=== PATIENT | female | born 1985 | race Caucasian/White ===

== ENCOUNTER 2017-02-23 17:32 | Emergency (ER) | payer MEDICAID ==
[2013-08-20 09:29] VITALS: BMI 29.9
[~2017-02-23 17:32] MED LIST: ANTIVERT25 MG PO; CELEXA20 MG PO; LOPRESSOR25 MG; POLYGESIC 5/5001 CAP PO; PRILOSEC10 MG PO
[2017-02-23 19:05] LABS: APPEARANCE CLEAR (CLEAR); BILIRUBIN NEGATIVE (NEGATIVE); COLOR YELLOW (YELLOW); GLUCOSE NEGATIVE (NEGATIVE); KETONE NEGATIVE (NEGATIVE); LEUKOCYTE ESTERASE 1+ (NEGATIVE); NITRITE NEGATIVE (NEGATIVE); PROTEIN NEGATIVE (NEGATIVE); SPECIFIC GRAVITY 1.015 (1.005-1.020); UROBILINOGEN NORMAL (NORMAL)
[2017-02-23 19:06] LABS: BACTERIA MODERATE /hpf (NONE SEEN); MUCUS <1+ /lpf (NONE SEEN); RED CELLS - URINE 0-5 /hpf (0-5); WHITE CELLS - URINE 0-5 /hpf (0-5)
[2017-02-23 21:02] LABS: HCG SERUM NEGATIVE (NEGATIVE)
== END 2017-02-23 20:55 | disposition home or self-care (01) ==
LOC: D.ER 17:32
PROVIDERS: Emergency Medicine; Physician Assistant
DX: R30.0 Dysuria (principal); R10.9 Unspecified abdominal pain; R11.2 Nausea with vomiting, unspecified; N76.0 Acute vaginitis; B96.89 Other specified bacterial agents as the cause of diseases classified elsewhere; F17.200 Nicotine dependence, unspecified, uncomplicated

== ENCOUNTER 2017-02-27 22:31 | Emergency (ER) | payer MEDICAID ==
[2013-08-20 09:29] VITALS: BMI 29.9
== END 2017-02-28 00:10 | disposition home or self-care (01) ==
LOC: D.ER 22:31
DX: J01.90 Acute sinusitis, unspecified (principal)

== ENCOUNTER 2017-02-28 15:57 | Emergency (ER) | payer MEDICAID ==
[2013-08-20 09:29] VITALS: BMI 29.9
[2017-02-28 20:07] LABS: BASOPHILS 0.1 % (0-2); EOSINOPHILS 0 % (0-7); HEMATOCRIT 37.8 % (36.0-48.0); HEMOGLOBIN 12.6 g/dL (12-16); IMMATURE GRANULOCYTES 0.3 % (0-5); LYMPHOCYTES 15.6 % (15-50); MCH 31.3 pg (26.0-34.0); MCHC 33.3 g/dL (31.0-37.0); MEAN PLATELET VOLUME 10.8 fL (7.4-10.4); MONOCYTES 6.2 % (2-11); NEUTROPHILS 77.8 % (40-80); PLATELET COUNT 244 10x3/uL (130-400); RBC 4.02 10x6/uL (4.00-5.40); RDW 13.9 % (11.5-14.5); WBC 14.1 10x3/uL (4.8-10.8)
[2017-02-28 20:23] LABS: CALC OSMOLALITY 278 mosm/kg (275-300); CALCIUM 8.5 mg/dL (8.5-10.1); CARBON DIOXIDE 22.6 mmol/L (21.0-32.0); CHLORIDE - SERUM 105 mmol/L (98-107); CREATININE - SERUM 0.7 mg/dL (0.6-1.3); GLUCOSE 112 mg/dL (74-106); POTASSIUM - SERUM 3.7 mmol/L (3.5-5.1); SODIUM 140 mmol/L (136-145); UREA NITROGEN 10 mg/dL (7-18); eGFR NON AFRICAN AMERICAN > 90 mL/min (90-120)
[2017-02-28 20:29] LABS: TROPONIN-I < 0.017 ng/mL (0.000-0.060)
== END 2017-02-28 22:00 | disposition home or self-care (01) ==
LOC: D.ER 15:57
PROVIDERS: Physician Assistant Medical
DX: J01.90 Acute sinusitis, unspecified (principal); M79.602 Pain in left arm; F17.200 Nicotine dependence, unspecified, uncomplicated

== ENCOUNTER 2017-03-13 22:24 | Emergency (ER) | payer MEDICAID ==
[2013-08-20 09:29] VITALS: BMI 29.9
== END 2017-03-14 01:00 | disposition home or self-care (01) ==
LOC: D.ER 22:24
DX: L60.0 Ingrowing nail (principal); F17.200 Nicotine dependence, unspecified, uncomplicated

== ENCOUNTER 2017-03-20 15:57 | Emergency (ER) | payer MEDICAID ==
[2013-08-20 09:29] VITALS: BMI 29.9
== END 2017-03-20 21:10 | disposition home or self-care (01) ==
LOC: D.ER 15:57
DX: M79.675 Pain in left toe(s) (principal)

== ENCOUNTER 2017-03-27 14:08 | Emergency (ER) | payer MEDICAID | END 2017-03-27 15:46 | disposition home or self-care (01) | LOC: D.ER 14:08 | DX: K08.89 Other specified disorders of teeth and supporting structures (principal); K05.10 Chronic gingivitis, plaque induced ==

== ENCOUNTER 2017-04-07 21:02 | Emergency (ER) | payer MEDICAID ==
[2013-08-20 09:29] VITALS: BMI 29.9
== END 2017-04-08 00:09 | disposition home or self-care (01) ==
LOC: D.ER 21:02
DX: S93.601A Unspecified sprain of right foot, initial encounter (principal); X58.XXXA Exposure to other specified factors, initial encounter; Y93.89 Activity, other specified; Y92.029 Unspecified place in mobile home as the place of occurrence of the external cause

== ENCOUNTER 2017-04-16 18:32 | Emergency (ER) | payer MEDICAID ==
[2013-08-20 09:29] VITALS: BMI 29.9
== END 2017-04-16 21:00 | disposition home or self-care (01) ==
LOC: D.ER 18:32
DX: M25.572 Pain in left ankle and joints of left foot (principal); M25.571 Pain in right ankle and joints of right foot; F17.200 Nicotine dependence, unspecified, uncomplicated

== ENCOUNTER 2017-04-21 22:38 | Emergency (ER) | payer MEDICAID ==
[2013-08-20 09:29] VITALS: BMI 29.9
== END 2017-04-21 23:20 | disposition home or self-care (01) ==
LOC: D.ER 22:38
DX: M25.571 Pain in right ankle and joints of right foot (principal)

== ENCOUNTER 2017-04-24 17:44 | Emergency (ER) | payer MEDICAID ==
[2013-08-20 09:29] VITALS: BMI 29.9
== END 2017-04-24 19:30 | disposition home or self-care (01) ==
LOC: D.ER 17:44
DX: S93.401A Sprain of unspecified ligament of right ankle, initial encounter (principal); X58.XXXA Exposure to other specified factors, initial encounter; Y93.89 Activity, other specified; Y92.029 Unspecified place in mobile home as the place of occurrence of the external cause

== ENCOUNTER 2017-05-10 18:14 | Emergency (ER) | payer MEDICAID ==
[2013-08-20 09:29] VITALS: BMI 29.9
== END 2017-05-10 19:50 | disposition home or self-care (01) ==
LOC: D.ER 18:14
DX: J20.9 Acute bronchitis, unspecified (principal); J06.9 Acute upper respiratory infection, unspecified; F17.200 Nicotine dependence, unspecified, uncomplicated

== ENCOUNTER 2017-05-14 20:48 | Emergency (ER) | payer MEDICAID ==
[2013-08-20 09:29] VITALS: BMI 29.9
== END 2017-05-14 22:57 | disposition home or self-care (01) ==
LOC: D.ER 20:48
DX: M25.572 Pain in left ankle and joints of left foot (principal); R60.9 Edema, unspecified; F17.200 Nicotine dependence, unspecified, uncomplicated

== ENCOUNTER → 2017-05-15 19:47 | Emergency (ER) | payer MEDICAID ==
[2013-08-20 09:29] VITALS: BMI 29.9
== END | disposition home or self-care (01) ==
LOC: D.ER 19:47
DX: M25.572 Pain in left ankle and joints of left foot (principal)

== ENCOUNTER 2017-05-20 00:02 | Emergency (ER) | payer MEDICAID ==
[2013-08-20 09:29] VITALS: BMI 29.9
== END 2017-05-20 01:19 | disposition home or self-care (01) ==
LOC: D.ER 00:02
DX: J20.9 Acute bronchitis, unspecified (principal); F17.200 Nicotine dependence, unspecified, uncomplicated

== ENCOUNTER 2017-05-25 19:11 | Emergency (ER) | payer MEDICAID ==
[2013-08-20 09:29] VITALS: BMI 29.9
== END 2017-05-25 21:34 | disposition home or self-care (01) ==
LOC: D.ER 19:11
DX: K04.7 Periapical abscess without sinus (principal); K08.89 Other specified disorders of teeth and supporting structures; F17.200 Nicotine dependence, unspecified, uncomplicated

== ENCOUNTER 2017-05-31 19:38 | Emergency (ER) | payer MEDICAID ==
[2013-08-20 09:29] VITALS: BMI 29.9
== END 2017-05-31 21:09 | disposition home or self-care (01) ==
LOC: D.ER 19:38
DX: M54.6 Pain in thoracic spine (principal)

== ENCOUNTER 2017-06-08 15:55 | Emergency (ER) | payer MEDICAID ==
[2013-08-20 09:29] VITALS: BMI 29.9
== END 2017-06-08 18:31 | disposition home or self-care (01) ==
LOC: D.ER 15:55
DX: J06.9 Acute upper respiratory infection, unspecified (principal); J20.9 Acute bronchitis, unspecified; F17.200 Nicotine dependence, unspecified, uncomplicated

== ENCOUNTER 2017-06-21 21:32 | Emergency (ER) | payer MEDICAID ==
[2013-08-20 09:29] VITALS: BMI 29.9
[2017-06-21 22:46] LABS: HCG URINE NEGATIVE (NEGATIVE)
[2017-06-21 22:49] LABS: APPEARANCE CLEAR (CLEAR); BILIRUBIN NEGATIVE (NEGATIVE); COLOR YELLOW (YELLOW); GLUCOSE NEGATIVE (NEGATIVE); KETONE NEGATIVE (NEGATIVE); NITRITE NEGATIVE (NEGATIVE); PROTEIN NEGATIVE (NEGATIVE); UROBILINOGEN NORMAL (NORMAL)
[2017-06-21 22:50] LABS: BACTERIA FEW /hpf (NONE SEEN); EPITHELIAL CELLS 0-5 /hpf (0-5); RED CELLS - URINE 0-5 /hpf (0-5); WHITE CELLS - URINE 0-5 /hpf (0-5)
== END 2017-06-22 01:27 | disposition home or self-care (01) ==
LOC: D.ER 21:32
PROVIDERS: Emergency Medicine
DX: N76.0 Acute vaginitis (principal); B96.89 Other specified bacterial agents as the cause of diseases classified elsewhere

== ENCOUNTER 2017-06-28 17:50 | Emergency (ER) | payer MEDICAID ==
[2013-08-20 09:29] VITALS: BMI 29.9
== END 2017-06-28 20:46 | disposition home or self-care (01) ==
LOC: D.ER 17:50
DX: G43.909 Migraine, unspecified, not intractable, without status migrainosus (principal); J42 Unspecified chronic bronchitis; M54.6 Pain in thoracic spine; I10 Essential (primary) hypertension

== ENCOUNTER 2017-06-30 15:30 | Emergency (ER) | payer MEDICAID ==
[2013-08-20 09:29] VITALS: BMI 29.9
[2017-06-30 16:31] LABS: BASOPHILS 0.4 % (0-2); EOSINOPHILS 1.4 % (0-7); HEMATOCRIT 38.2 % (36.0-48.0); HEMOGLOBIN 13.2 g/dL (12-16); IMMATURE GRANULOCYTES 0.1 % (0-5); LYMPHOCYTES 38.1 % (15-50); MCH 30.8 pg (26.0-34.0); MCHC 34.6 g/dL (31.0-37.0); MEAN PLATELET VOLUME 11.3 fL (7.4-10.4); MONOCYTES 6.4 % (2-11); NEUTROPHILS 53.6 % (40-80); PLATELET COUNT 237 10x3/uL (130-400); RBC 4.29 10x6/uL (4.00-5.40); RDW 13.6 % (11.5-14.5); WBC 6.9 10x3/uL (4.8-10.8)
[2017-06-30 16:49] LABS: ALBUMIN 3.3 g/dL (3.4-5.0); ALKALINE PHOSPHATASE 71 U/L (46-116); ALT (SGPT) 12 U/L (10-68); CALC OSMOLALITY 276 mosm/kg (275-300); CALCIUM 8.6 mg/dL (8.5-10.1); CARBON DIOXIDE 24.6 mmol/L (21.0-32.0); CHLORIDE - SERUM 104 mmol/L (98-107); CREATININE - SERUM 0.6 mg/dL (0.6-1.3); GLUCOSE 100 mg/dL (74-106); POTASSIUM - SERUM 3.6 mmol/L (3.5-5.1); PROTEIN - SERUM 6.9 g/dL (6.4-8.2); SODIUM 139 mmol/L (136-145); UREA NITROGEN 9 mg/dL (7-18); eGFR NON AFRICAN AMERICAN > 90 mL/min (90-120)
[2017-06-30 16:53] LABS: TROPONIN-I < 0.017 ng/mL (0.000-0.060)
== END 2017-06-30 18:00 | disposition home or self-care (01) ==
LOC: D.ER 15:30
PROVIDERS: Family Medicine; Physician Assistant
DX: J20.9 Acute bronchitis, unspecified (principal); M54.6 Pain in thoracic spine; I10 Essential (primary) hypertension

== ENCOUNTER 2017-07-07 17:28 | Emergency (ER) | payer MEDICAID ==
[2013-08-20 09:29] VITALS: BMI 29.9
[2017-07-18 16:10] LABS: AEROBE ID Final report (())
== END 2017-07-07 19:08 | disposition home or self-care (01) ==
LOC: D.ER 17:28
PROVIDERS: Emergency Medicine
DX: J02.9 Acute pharyngitis, unspecified (principal); F17.200 Nicotine dependence, unspecified, uncomplicated

== ENCOUNTER 2017-07-25 20:49 | Emergency (ER) | payer MEDICAID ==
[2013-08-20 09:29] VITALS: BMI 29.9
== END 2017-07-25 22:42 | disposition home or self-care (01) ==
LOC: D.ER 20:49
DX: M62.830 Muscle spasm of back (principal); F17.200 Nicotine dependence, unspecified, uncomplicated

== ENCOUNTER 2017-08-03 22:17 | Emergency (ER) | payer MEDICAID ==
[2013-08-20 09:29] VITALS: BMI 29.9
== END 2017-08-03 23:50 | disposition home or self-care (01) ==
LOC: D.ER 22:17
DX: M25.562 Pain in left knee (principal); S86.912A Strain of unspecified muscle(s) and tendon(s) at lower leg level, left leg, initial encounter; X58.XXXA Exposure to other specified factors, initial encounter; Y93.89 Activity, other specified; Y92.89 Other specified places as the place of occurrence of the external cause

== ENCOUNTER 2017-08-11 22:14 | Emergency (ER) | payer MEDICAID ==
[2013-08-20 09:29] VITALS: BMI 29.9
[2017-08-11 22:40] LABS: APPEARANCE HAZY (CLEAR); BILIRUBIN NEGATIVE (NEGATIVE); COLOR YELLOW (YELLOW); GLUCOSE NEGATIVE (NEGATIVE); KETONE NEGATIVE (NEGATIVE); NITRITE NEGATIVE (NEGATIVE); PROTEIN NEGATIVE (NEGATIVE); SPECIFIC GRAVITY 1.015 (1.005-1.020); UROBILINOGEN NORMAL (NORMAL)
[2017-08-11 22:43] LABS: HCG URINE NEGATIVE (NEGATIVE)
[2017-08-11 23:14] LABS: BASOPHILS 0.2 % (0-2); EOSINOPHILS 0.8 % (0-7); HEMATOCRIT 37.6 % (36.0-48.0); HEMOGLOBIN 12.5 g/dL (12-16); IMMATURE GRANULOCYTES 0.1 % (0-5); MCH 30.7 pg (26.0-34.0); MCHC 33.2 g/dL (31.0-37.0); MCV 92.4 fL (80.0-100.0); MONOCYTES 5.2 % (2-11); NEUTROPHILS 63.7 % (40-80); PLATELET COUNT 214 10x3/uL (130-400); RBC 4.07 10x6/uL (4.00-5.40); WBC 9.2 10x3/uL (4.8-10.8)
[2017-08-11 23:27] LABS: ALBUMIN 3.5 g/dL (3.4-5.0); ALKALINE PHOSPHATASE 65 U/L (46-116); ALT (SGPT) 12 U/L (10-68); AMYLASE - SERUM 39 U/L (25-115); BILIRUBIN - TOTAL 0.21 mg/dL (0.2-1.3); CALC OSMOLALITY 276 mosm/kg (275-300); CALCIUM 8.7 mg/dL (8.5-10.1); CARBON DIOXIDE 28.3 mmol/L (21.0-32.0); CHLORIDE - SERUM 103 mmol/L (98-107); CREATININE - SERUM 0.8 mg/dL (0.6-1.3); GLUCOSE 101 mg/dL (74-106); LIPASE 108 U/L (73-393); POTASSIUM - SERUM 3.6 mmol/L (3.5-5.1); SODIUM 140 mmol/L (136-145); UREA NITROGEN 8 mg/dL (7-18); eGFR NON AFRICAN AMERICAN 88 mL/min (90-120)
[2017-08-14 14:09] LABS: CHLAMYDIA TRACHOMATIS, NAA Negative (Negative)
== END 2017-08-12 00:08 | disposition home or self-care (01) ==
LOC: D.ER 22:14
PROVIDERS: Family Medicine
DX: R10.9 Unspecified abdominal pain (principal); K59.00 Constipation, unspecified; F17.200 Nicotine dependence, unspecified, uncomplicated

== ENCOUNTER 2017-08-23 21:17 | Emergency (ER) | payer MEDICAID ==
[2013-08-20 09:29] VITALS: BMI 29.9
== END 2017-08-24 00:23 | disposition home or self-care (01) ==
LOC: D.ER 21:17
DX: M76.52 Patellar tendinitis, left knee (principal); F17.200 Nicotine dependence, unspecified, uncomplicated

== ENCOUNTER 2017-08-29 15:06 | Emergency (ER) | payer MEDICAID ==
[2013-08-20 09:29] VITALS: BMI 29.9
[2017-08-29 15:47] LABS: HEMATOCRIT 39.9 % (36.0-48.0); HEMOGLOBIN 13.8 g/dL (12-16); LYMPHOCYTES 25.7 % (15-50); MCH 30.7 pg (26.0-34.0); MCHC 34.6 g/dL (31.0-37.0); MCV 88.7 fL (80.0-100.0); MEAN PLATELET VOLUME 10.1 fL (7.4-10.4); NEUTROPHILS 70.5 % (40-80); PLATELET COUNT 224 10x3/uL (130-400); RDW 13.7 % (11.5-14.5); WBC 10.9 10x3/uL (4.8-10.8)
[2017-08-29 15:58] LABS: HCG SERUM NEGATIVE (NEGATIVE)
[2017-08-29 16:17] LABS: APTT 31.9 SECONDS (22.8-39.4); INR 0.98 (0.85-1.17); PROTIME 12.6 SECONDS (11.6-15.0)
[2017-08-29 16:27] LABS: ALBUMIN 3.7 g/dL (3.4-5.0); ALKALINE PHOSPHATASE 78 U/L (46-116); ALT (SGPT) 11 U/L (10-68); BILIRUBIN - TOTAL 0.38 mg/dL (0.2-1.3); CALC OSMOLALITY 274 mosm/kg (275-300); CARBON DIOXIDE 25.5 mmol/L (21.0-32.0); CHLORIDE - SERUM 104 mmol/L (98-107); CREATININE - SERUM 0.7 mg/dL (0.6-1.3); GLUCOSE 90 mg/dL (74-106); POTASSIUM - SERUM 3.9 mmol/L (3.5-5.1); PROTEIN - SERUM 7.9 g/dL (6.4-8.2); SODIUM 138 mmol/L (136-145); UREA NITROGEN 11 mg/dL (7-18); eGFR NON AFRICAN AMERICAN > 90 mL/min (90-120)
[2017-08-29 17:14] LABS: APPEARANCE HAZY (CLEAR); BILIRUBIN NEGATIVE (NEGATIVE); COLOR YELLOW (YELLOW); GLUCOSE NEGATIVE (NEGATIVE); KETONE NEGATIVE (NEGATIVE); NITRITE NEGATIVE (NEGATIVE); PROTEIN NEGATIVE (NEGATIVE); SPECIFIC GRAVITY 1.015 (1.005-1.020); UDS - AMPHET NEGATIVE QUAL (NEGATIVE); UDS - BARB NEGATIVE QUAL (NEGATIVE); UDS - BENZO POSITIVE QUAL (NEGATIVE); UDS - COCAINE NEGATIVE QUAL (NEGATIVE); UDS - OPIATE POSITIVE QUAL (NEGATIVE); UDS - PCP NEGATIVE QUAL (NEGATIVE); UDS - THC NEGATIVE QUAL (NEGATIVE); UROBILINOGEN NORMAL (NORMAL)
[2017-08-29 17:16] LABS: BACTERIA MODERATE /hpf (NONE SEEN); MUCUS <1+ /lpf (NONE SEEN); RED CELLS - URINE 25-50 /hpf (0-5); WHITE CELLS - URINE 0-5 /hpf (0-5)
== END 2017-08-29 18:00 | disposition home or self-care (01) ==
LOC: D.ER 15:06
PROVIDERS: Family Medicine
DX: N93.8 Other specified abnormal uterine and vaginal bleeding (principal)

== ENCOUNTER 2017-09-18 19:34 | Emergency (ER) | payer MEDICAID ==
[2013-08-20 09:29] VITALS: BMI 29.9
[2017-09-18 19:58] LABS: HCG URINE NEGATIVE (NEGATIVE)
[2017-09-18 20:01] LABS: APPEARANCE HAZY (CLEAR); COLOR YELLOW (YELLOW)
[2017-09-18 20:03] LABS: BACTERIA NONE SEEN /hpf (NONE SEEN); BILIRUBIN NEGATIVE (NEGATIVE); GLUCOSE NEGATIVE (NEGATIVE); KETONE NEGATIVE (NEGATIVE); NITRITE NEGATIVE (NEGATIVE); PROTEIN NEGATIVE (NEGATIVE); UROBILINOGEN NORMAL (NORMAL); WHITE CELLS - URINE 0-5 /hpf (0-5)
[2017-09-18 20:51] LABS: BASOPHILS 0.2 % (0-2); EOSINOPHILS 0.8 % (0-7); HEMATOCRIT 36.7 % (36.0-48.0); HEMOGLOBIN 12.4 g/dL (12-16); IMMATURE GRANULOCYTES 0.1 % (0-5); LYMPHOCYTES 31.9 % (15-50); MCH 30.7 pg (26.0-34.0); MCHC 33.8 g/dL (31.0-37.0); MCV 90.8 fL (80.0-100.0); MEAN PLATELET VOLUME 10.6 fL (7.4-10.4); MONOCYTES 5.2 % (2-11); NEUTROPHILS 61.8 % (40-80); PLATELET COUNT 181 10x3/uL (130-400); RBC 4.04 10x6/uL (4.00-5.40); RDW 13.5 % (11.5-14.5)
[2017-09-18 21:06] LABS: ALBUMIN 3.2 g/dL (3.4-5.0); ALKALINE PHOSPHATASE 82 U/L (46-116); ALT (SGPT) 19 U/L (10-68); AMYLASE - SERUM 35 U/L (25-115); BILIRUBIN - TOTAL 0.19 mg/dL (0.2-1.3); CALC OSMOLALITY 272 mosm/kg (275-300); CALCIUM 8.8 mg/dL (8.5-10.1); CARBON DIOXIDE 27.1 mmol/L (21.0-32.0); CHLORIDE - SERUM 104 mmol/L (98-107); CREATININE - SERUM 0.6 mg/dL (0.6-1.3); GLUCOSE 98 mg/dL (74-106); LIPASE 88 U/L (73-393); POTASSIUM - SERUM 3.6 mmol/L (3.5-5.1); PROTEIN - SERUM 7.1 g/dL (6.4-8.2); SODIUM 137 mmol/L (136-145); UREA NITROGEN 9 mg/dL (7-18); eGFR NON AFRICAN AMERICAN > 90 mL/min (90-120)
== END 2017-09-18 22:05 | disposition home or self-care (01) ==
LOC: D.ER 19:34
PROVIDERS: Family Medicine
DX: R10.2 Pelvic and perineal pain (principal); N83.209 Unspecified ovarian cyst, unspecified side

== ENCOUNTER 2017-09-26 19:47 | Emergency (ER) | payer MEDICAID ==
[2013-08-20 09:29] VITALS: BMI 29.9
[2017-09-26 21:35] LABS: BASOPHILS 0.3 % (0-2); EOSINOPHILS 0.5 % (0-7); HEMATOCRIT 38.5 % (36.0-48.0); IMMATURE GRANULOCYTES 0.1 % (0-5); LYMPHOCYTES 24.7 % (15-50); MCH 30.3 pg (26.0-34.0); MCHC 33.8 g/dL (31.0-37.0); MCV 89.7 fL (80.0-100.0); MEAN PLATELET VOLUME 10.8 fL (7.4-10.4); MONOCYTES 6.3 % (2-11); NEUTROPHILS 68.1 % (40-80); PLATELET COUNT 217 10x3/uL (130-400); RBC 4.29 10x6/uL (4.00-5.40); RDW 13.7 % (11.5-14.5); WBC 9.3 10x3/uL (4.8-10.8)
[2017-09-26 22:16] LABS: HCG SERUM NEGATIVE (NEGATIVE)
== END 2017-09-26 22:40 | disposition home or self-care (01) ==
LOC: D.ER 19:47
PROVIDERS: Family Medicine
DX: N83.209 Unspecified ovarian cyst, unspecified side (principal); F17.200 Nicotine dependence, unspecified, uncomplicated

== ENCOUNTER 2017-10-20 10:55 | Emergency (ER) | payer MEDICAID ==
[2013-08-20 09:29] VITALS: BMI 29.9
[2017-10-20 12:44] LABS: APPEARANCE SLT CLOUDY (CLEAR); BACTERIA MODERATE /hpf (NONE SEEN); BILIRUBIN NEGATIVE (NEGATIVE); COLOR YELLOW (YELLOW); GLUCOSE NEGATIVE (NEGATIVE); KETONE NEGATIVE (NEGATIVE); MUCUS >1+ /lpf (NONE SEEN); NITRITE NEGATIVE (NEGATIVE); PROTEIN NEGATIVE (NEGATIVE); SPECIFIC GRAVITY 1.015 (1.005-1.020); WHITE CELLS - URINE 0-5 /hpf (0-5)
== END 2017-10-20 13:05 | disposition home or self-care (01) ==
LOC: D.ER 10:55
PROVIDERS: Emergency Medicine
DX: R10.2 Pelvic and perineal pain (principal); N76.0 Acute vaginitis; B96.89 Other specified bacterial agents as the cause of diseases classified elsewhere

== ENCOUNTER 2017-10-29 14:13 | Emergency (ER) | payer MEDICAID ==
[2013-08-20 09:29] VITALS: BMI 29.9
[2017-10-29 15:33] LABS: BASOPHILS 0.3 % (0-2); HEMATOCRIT 39.7 % (36.0-48.0); HEMOGLOBIN 13.4 g/dL (12-16); IMMATURE GRANULOCYTES 0.2 % (0-5); LYMPHOCYTES 14.4 % (15-50); MCH 30.4 pg (26.0-34.0); MCHC 33.8 g/dL (31.0-37.0); MEAN PLATELET VOLUME 10.8 fL (7.4-10.4); MONOCYTES 5.1 % (2-11); PLATELET COUNT 217 10x3/uL (130-400); RBC 4.41 10x6/uL (4.00-5.40); RDW 13.8 % (11.5-14.5); WBC 11.9 10x3/uL (4.8-10.8)
[2017-10-29 15:37] LABS: APPEARANCE SLT CLOUDY (CLEAR); BILIRUBIN NEGATIVE (NEGATIVE); COLOR YELLOW (YELLOW); GLUCOSE NEGATIVE (NEGATIVE); KETONE NEGATIVE (NEGATIVE); NITRITE NEGATIVE (NEGATIVE); PROTEIN NEGATIVE (NEGATIVE); UROBILINOGEN NORMAL (NORMAL)
[2017-10-29 15:47] LABS: ALBUMIN 3.6 g/dL (3.4-5.0); ALKALINE PHOSPHATASE 89 U/L (46-116); ALT (SGPT) 16 U/L (10-68); CALC OSMOLALITY 277 mosm/kg (275-300); CALCIUM 9.1 mg/dL (8.5-10.1); CARBON DIOXIDE 24.2 mmol/L (21.0-32.0); CHLORIDE - SERUM 104 mmol/L (98-107); CREATININE - SERUM 0.7 mg/dL (0.6-1.3); GLUCOSE 108 mg/dL (74-106); POTASSIUM - SERUM 3.8 mmol/L (3.5-5.1); SODIUM 139 mmol/L (136-145); UREA NITROGEN 10 mg/dL (7-18); eGFR NON AFRICAN AMERICAN > 90 mL/min (90-120)
== END 2017-10-29 16:55 | disposition home or self-care (01) ==
LOC: D.ER 14:13
PROVIDERS: Emergency Medicine
DX: R06.00 Dyspnea, unspecified (principal); R10.9 Unspecified abdominal pain

== ENCOUNTER 2017-11-17 19:11 | Emergency (ER) | payer MEDICAID ==
[2013-08-20 09:29] VITALS: BMI 29.9
== END 2017-11-17 21:00 | disposition home or self-care (01) ==
LOC: D.ER 19:11
DX: K04.7 Periapical abscess without sinus (principal); K08.89 Other specified disorders of teeth and supporting structures; F17.200 Nicotine dependence, unspecified, uncomplicated

== ENCOUNTER 2017-11-21 14:22 | Emergency (ER) | payer MEDICAID ==
[2013-08-20 09:29] VITALS: BMI 29.9
[2017-11-21 17:45] LABS: BASOPHILS 0.2 % (0-2); EOSINOPHILS 0.6 % (0-7); HEMATOCRIT 37.1 % (36.0-48.0); HEMOGLOBIN 12.7 g/dL (12-16); IMMATURE GRANULOCYTES 0.2 % (0-5); LYMPHOCYTES 20.1 % (15-50); MCH 30.9 pg (26.0-34.0); MCHC 34.2 g/dL (31.0-37.0); MCV 90.3 fL (80.0-100.0); MEAN PLATELET VOLUME 10.9 fL (7.4-10.4); MONOCYTES 4.9 % (2-11); PLATELET COUNT 201 10x3/uL (130-400); RBC 4.11 10x6/uL (4.00-5.40); RDW 13.7 % (11.5-14.5); WBC 8.4 10x3/uL (4.8-10.8)
[2017-11-21 17:54] LABS: APPEARANCE CLEAR (CLEAR); BILIRUBIN NEGATIVE (NEGATIVE); COLOR YELLOW (YELLOW); GLUCOSE NEGATIVE (NEGATIVE); KETONE SMALL mg/dL (NEGATIVE); NITRITE NEGATIVE (NEGATIVE); PROTEIN NEGATIVE (NEGATIVE); UROBILINOGEN NORMAL (NORMAL)
[2017-11-21 18:24] LABS: ALBUMIN 3.7 g/dL (3.4-5.0); ALKALINE PHOSPHATASE 81 U/L (46-116); ALT (SGPT) 25 U/L (10-68); BILIRUBIN - TOTAL 0.42 mg/dL (0.2-1.3); CALC OSMOLALITY 277 mosm/kg (275-300); CALCIUM 9.2 mg/dL (8.5-10.1); CARBON DIOXIDE 24.6 mmol/L (21.0-32.0); CHLORIDE - SERUM 105 mmol/L (98-107); CREATININE - SERUM 0.7 mg/dL (0.6-1.3); GLUCOSE 93 mg/dL (74-106); POTASSIUM - SERUM 4.1 mmol/L (3.5-5.1); PROTEIN - SERUM 7.9 g/dL (6.4-8.2); SODIUM 140 mmol/L (136-145); UREA NITROGEN 9 mg/dL (7-18); eGFR NON AFRICAN AMERICAN > 90 mL/min (90-120)
[2017-11-21 18:34] LABS: HCG SERUM NEGATIVE (NEGATIVE)
== END 2017-11-21 21:18 | disposition home or self-care (01) ==
LOC: D.ER 14:22
PROVIDERS: Physician Assistant Medical
DX: K52.9 Noninfective gastroenteritis and colitis, unspecified (principal); F17.200 Nicotine dependence, unspecified, uncomplicated

== ENCOUNTER 2017-12-09 15:21 | Emergency (ER) | payer MEDICAID ==
[2013-08-20 09:29] VITALS: BMI 29.9
== END 2017-12-09 18:34 | disposition home or self-care (01) ==
LOC: D.ER 15:21
DX: N83.202 Unspecified ovarian cyst, left side (principal); M25.50 Pain in unspecified joint

== ENCOUNTER 2018-01-03 12:22 | Emergency (ER) | payer MEDICAID ==
[~2018-01-03] VITALS: Ht 162.6 cm; Wt 72.7 kg
[2018-01-03 13:25] VITALS: Ht 162.6 cm; Wt 72.7 kg
[2018-01-03] MEDS ORDERED: XANAX1 MG PO (13:29)
[2018-01-03] MEDS ORDERED: LOVASTATIN20 MG PO (13:29)
[2018-01-03 13:59] LABS: BASOPHILS 0.5 % (0-2); EOSINOPHILS 0.4 % (0-7); HEMATOCRIT 39.4 % (36.0-48.0); HEMOGLOBIN 13.5 g/dL (12-16); IMMATURE GRANULOCYTES 0.1 % (0-5); LYMPHOCYTES 21.6 % (15-50); MCH 30.3 pg (26.0-34.0); MCHC 34.3 g/dL (31.0-37.0); MCV 88.5 fL (80.0-100.0); MEAN PLATELET VOLUME 11.1 fL (7.4-10.4); MONOCYTES 5.2 % (2-11); NEUTROPHILS 72.2 % (40-80); PLATELET COUNT 213 10x3/uL (130-400); RBC 4.45 10x6/uL (4.00-5.40); WBC 8.3 10x3/uL (4.8-10.8)
[2018-01-03 14:12] LABS: ALBUMIN 3.6 g/dL (3.4-5.0); ALKALINE PHOSPHATASE 78 U/L (46-116); ALT (SGPT) 10 U/L (10-68); BILIRUBIN - TOTAL 0.33 mg/dL (0.2-1.3); CALC OSMOLALITY 273 mosm/kg (275-300); CALCIUM 9.1 mg/dL (8.5-10.1); CARBON DIOXIDE 24.7 mmol/L (21.0-32.0); CHLORIDE - SERUM 106 mmol/L (98-107); CREATININE - SERUM 0.7 mg/dL (0.6-1.3); GLUCOSE 96 mg/dL (74-106); POTASSIUM - SERUM 4.2 mmol/L (3.5-5.1); PROTEIN - SERUM 7.9 g/dL (6.4-8.2); SODIUM 138 mmol/L (136-145); UREA NITROGEN 8 mg/dL (7-18); eGFR NON AFRICAN AMERICAN > 90 mL/min (90-120)
[2018-01-03 14:15] LABS: AMYLASE - SERUM 37 U/L (25-115); LIPASE 94 U/L (73-393); TROPONIN-I < 0.017 ng/mL (0.000-0.060)
[2018-01-03 14:25] LABS: APPEARANCE SLT CLOUDY (CLEAR); COLOR YELLOW (YELLOW)
[2018-01-03 14:26] LABS: BILIRUBIN NEGATIVE (NEGATIVE); GLUCOSE NEGATIVE (NEGATIVE); KETONE NEGATIVE (NEGATIVE); NITRITE NEGATIVE (NEGATIVE); PROTEIN NEGATIVE (NEGATIVE); UROBILINOGEN NORMAL (NORMAL)
[2018-01-03 14:28] LABS: WHITE CELLS - URINE 0-5 /hpf (0-5)
[2018-01-03 14:29] LABS: BACTERIA MODERATE /hpf (NONE SEEN); EPITHELIAL CELLS 0-5 /hpf (0-5); MUCUS <1+ /lpf (NONE SEEN)
[2018-01-03 15:14] LABS: HCG URINE NEGATIVE (NEGATIVE)
[2018-01-03] MEDS ORDERED: VOLTAREN75 MG PO (17:25)
[2018-01-03] MEDS ORDERED: MACROBID100 MG PO (17:25)
[2018-01-03 18:44] VITALS: BP 140/84
== END 2018-01-03 18:45 | disposition home or self-care (01) ==
LOC: D.ER 12:22
PROVIDERS: Family Medicine
DX: N39.0 Urinary tract infection, site not specified (principal); Z87.42 Personal history of other diseases of the female genital tract

== ENCOUNTER 2018-01-31 01:19 | Emergency (ER) | payer MEDICAID ==
[~2018-01-31] VITALS: Ht 162.6 cm; Wt 74.4 kg
[~2018-01-31 01:19] MED LIST changes: -LOPRESSOR25 MG; +LOVASTATIN20 MG PO; +MACROBID100 MG PO; +METOPROLOL TART25 MG PO; +VOLTAREN75 MG PO; +XANAX1 MG PO
[2018-01-31 01:34] VITALS: Ht 162.6 cm; Wt 74.4 kg
[2018-01-31] MEDS ORDERED: DOLOPHINE HCL5 MG PO (01:37)
[2018-01-31 02:29] LABS: BASOPHILS 0.4 % (0-2); HEMATOCRIT 36.9 % (36.0-48.0); HEMOGLOBIN 12.4 g/dL (12-16); IMMATURE GRANULOCYTES 0.1 % (0-5); LYMPHOCYTES 40.1 % (15-50); MCH 29.7 pg (26.0-34.0); MCHC 33.6 g/dL (31.0-37.0); MCV 88.5 fL (80.0-100.0); MEAN PLATELET VOLUME 11.4 fL (7.4-10.4); NEUTROPHILS 52.4 % (40-80); PLATELET COUNT 190 10x3/uL (130-400); RBC 4.17 10x6/uL (4.00-5.40); RDW 13.2 % (11.5-14.5); WBC 6.8 10x3/uL (4.8-10.8)
[2018-01-31 02:41] LABS: ALBUMIN 3.4 g/dL (3.4-5.0); ALKALINE PHOSPHATASE 62 U/L (46-116); ALT (SGPT) 9 U/L (10-68); BILIRUBIN - TOTAL 0.16 mg/dL (0.2-1.3); CALC OSMOLALITY 276 mosm/kg (275-300); CALCIUM 8.6 mg/dL (8.5-10.1); CARBON DIOXIDE 27.1 mmol/L (21.0-32.0); CHLORIDE - SERUM 107 mmol/L (98-107); CREATININE - SERUM 0.7 mg/dL (0.6-1.3); GLUCOSE 102 mg/dL (74-106); POTASSIUM - SERUM 3.6 mmol/L (3.5-5.1); PROTEIN - SERUM 7.1 g/dL (6.4-8.2); SODIUM 140 mmol/L (136-145); UREA NITROGEN 6 mg/dL (7-18); eGFR NON AFRICAN AMERICAN > 90 mL/min (90-120)
[2018-01-31 02:42] LABS: BILIRUBIN NEGATIVE (NEGATIVE); COLOR YELLOW (YELLOW); GLUCOSE NEGATIVE (NEGATIVE); KETONE NEGATIVE (NEGATIVE); NITRITE NEGATIVE (NEGATIVE); PROTEIN NEGATIVE (NEGATIVE); SPECIFIC GRAVITY 1.015 (1.005-1.020); UROBILINOGEN NORMAL (NORMAL)
[2018-01-31 02:43] LABS: AMORPHOUS SEDIMENT <1+ /lpf (NONE SEEN); BACTERIA MODERATE /hpf (NONE SEEN); EPITHELIAL CELLS 0-5 /hpf (0-5); RED CELLS - URINE NONE SEEN /hpf (0-5); WHITE CELLS - URINE 0-5 /hpf (0-5)
[2018-01-31 02:44] LABS: AMYLASE - SERUM 43 U/L (25-115); LIPASE 253 U/L (73-393); TROPONIN-I < 0.017 ng/mL (0.000-0.060)
[2018-01-31] MEDS ORDERED: ACETAMINOPHEN500 M1 PO (06:21)
[2018-01-31] MEDS ORDERED: CYCLOBENZAPRINE10 MG PO (06:21)
[2018-01-31 06:37] VITALS: BP 109/67
[2018-02-01 14:21] LABS: APPEARANCE SL CLDY (CLEAR)
[2018-03-07] MEDS ORDERED: LOVASTATIN20 MG PO (11:11)
== END 2018-01-31 06:37 | disposition home or self-care (01) ==
LOC: D.ER 01:19
PROVIDERS: Family Medicine
DX: N80.9 Endometriosis, unspecified (principal); R10.9 Unspecified abdominal pain; F17.200 Nicotine dependence, unspecified, uncomplicated

== ENCOUNTER 2018-02-10 16:44 | Emergency (ER) | payer MEDICAID ==
[~2018-02-10] VITALS: Ht 162.6 cm; Wt 74.1 kg
[~2018-02-10 16:44] MED LIST changes: +ACETAMINOPHEN500 M1 PO; +CYCLOBENZAPRINE10 MG PO; +DOLOPHINE HCL5 MG PO
[2018-02-10 17:49] VITALS: Ht 162.6 cm; Wt 74.1 kg
[2018-02-10 18:14] LABS: BASOPHILS 0.4 % (0-2); EOSINOPHILS 0.5 % (0-7); HEMOGLOBIN 13.6 g/dL (12-16); IMMATURE GRANULOCYTES 0.1 % (0-5); LYMPHOCYTES 23.2 % (15-50); MCH 30.2 pg (26.0-34.0); MCV 88.9 fL (80.0-100.0); MEAN PLATELET VOLUME 10.9 fL (7.4-10.4); MONOCYTES 5.9 % (2-11); NEUTROPHILS 69.9 % (40-80); PLATELET COUNT 203 10x3/uL (130-400); RDW 13.4 % (11.5-14.5); WBC 9.4 10x3/uL (4.8-10.8)
[2018-02-10 18:50] LABS: APPEARANCE HAZY (CLEAR); BILIRUBIN NEGATIVE (NEGATIVE); COLOR YELLOW (YELLOW); GLUCOSE NEGATIVE (NEGATIVE); KETONE NEGATIVE (NEGATIVE); NITRITE NEGATIVE (NEGATIVE); PROTEIN NEGATIVE (NEGATIVE); UROBILINOGEN NORMAL (NORMAL)
[2018-02-10 18:51] LABS: BACTERIA MODERATE /hpf (NONE SEEN); RED CELLS - URINE 0-5 /hpf (0-5); WHITE CELLS - URINE 0-5 /hpf (0-5)
[2018-02-10 18:52] LABS: MUCUS <1+ /lpf (NONE SEEN)
[2018-02-10 18:53] LABS: HCG URINE NEGATIVE (NEGATIVE)
[2018-02-10 18:54] LABS: ALBUMIN 3.8 g/dL (3.4-5.0); ALKALINE PHOSPHATASE 89 U/L (46-116); ALT (SGPT) 16 U/L (10-68); BILIRUBIN - TOTAL 0.34 mg/dL (0.2-1.3); CALC OSMOLALITY 275 mosm/kg (275-300); CALCIUM 9.1 mg/dL (8.5-10.1); CARBON DIOXIDE 27.7 mmol/L (21.0-32.0); CHLORIDE - SERUM 102 mmol/L (98-107); CREATININE - SERUM 0.7 mg/dL (0.6-1.3); GLUCOSE 104 mg/dL (74-106); POTASSIUM - SERUM 3.5 mmol/L (3.5-5.1); PROTEIN - SERUM 8.2 g/dL (6.4-8.2); SODIUM 139 mmol/L (136-145); UREA NITROGEN 8 mg/dL (7-18); eGFR NON AFRICAN AMERICAN > 90 mL/min (90-120)
[2018-02-10 18:57] LABS: AMYLASE - SERUM 38 U/L (25-115); LIPASE 123 U/L (73-393)
[2018-02-10 19:05] LABS: TROPONIN-I < 0.017 ng/mL (0.000-0.060)
[2018-02-10] MEDS ORDERED: HYDROCODON-ACE1 EAC7 PO (21:50)
[2018-02-10 22:09] VITALS: BP 115/77
[2018-03-07] MEDS ORDERED: LOVASTATIN20 MG PO (11:11)
== END 2018-02-10 22:09 | disposition home or self-care (01) ==
LOC: D.ER 16:44
PROVIDERS: Family Medicine
DX: R10.2 Pelvic and perineal pain (principal); F17.200 Nicotine dependence, unspecified, uncomplicated

== ENCOUNTER 2018-03-08 07:30 | Day surgery (SDC) | payer MEDICAID ==
[2018-03-07 12:29] LABS: BASOPHILS 0.5 % (0-2); EOSINOPHILS 0.8 % (0-7); HEMATOCRIT 38.9 % (36.0-48.0); HEMOGLOBIN 13.3 g/dL (12-16); LYMPHOCYTES 27.7 % (15-50); MCH 29.7 pg (26.0-34.0); MCHC 34.2 g/dL (31.0-37.0); MCV 86.8 fL (80.0-100.0); MEAN PLATELET VOLUME 10.7 fL (7.4-10.4); MONOCYTES 5.5 % (2-11); NEUTROPHILS 65.5 % (40-80); PLATELET COUNT 217 10x3/uL (130-400); RBC 4.48 10x6/uL (4.00-5.40); RDW 13.5 % (11.5-14.5)
[2018-03-07 12:50] LABS: CALC OSMOLALITY 272 mosm/kg (275-300); CALCIUM 8.6 mg/dL (8.5-10.1); CARBON DIOXIDE 28.1 mmol/L (21.0-32.0); CHLORIDE - SERUM 104 mmol/L (98-107); CREATININE - SERUM 0.7 mg/dL (0.6-1.3); GLUCOSE 97 mg/dL (74-106); POTASSIUM - SERUM 4.4 mmol/L (3.5-5.1); SODIUM 138 mmol/L (136-145); UREA NITROGEN 5 mg/dL (7-18); eGFR NON AFRICAN AMERICAN > 90 mL/min (90-120)
[2018-03-08] VITALS (11 sets, daily range): BP systolic 110–123; BP diastolic 64–80; Ht 162.6 cm; Wt 74.5 kg
[~2018-03-08] VITALS: Ht 162.6 cm; Wt 74.5 kg
--- NOTE | ~2018-03-08 | OP ---
PATIENT NAME: MARIE SCOTT MEDICAL RECORD: [id number] :85 [facility] DATE: SURGEON: LUIS FELIPE LINDO MD DATE OF OPERATION: 03/08/2018 PREOPERATIVE DIAGNOSES: 1. Chronic pelvic pain. 2. Endometriosis. POSTOPERATIVE DIAGNOSES: 1. Chronic pelvic pain. 2. Endometriosis. PROCEDURE: 1. Diagnostic laparoscopy. 2. Total laparoscopic hysterectomy. 3. Bilateral salpingectomy. 4. Left oophorectomy. PRIMARY SURGEON: Luis Felipe Lindo MD SUPERVISING LAW ENFORCEMENT ANALYST: Dr. Manuel CLERK GUIDE: Ros Nowak. ANESTHETIC: General anesthetic with endotracheal intubation. FINDINGS: Active endometriosis is present in the pelvis and on the uterine serosa. Left ovary has active endometriosis. Both right and left tubes were unremarkable. What was visualized of the abdominal anatomy was unremarkable. SPECIMENS REMOVED: 1. Uterus. 2. Bilateral tubes. 3. Left ovary. SPECIMEN DISPOSITION: Pathology. ESTIMATED BLOOD LOSS: Less than or equal to 75 cc. FLUIDS: 1700 cc lactated Ringer's. URINE OUTPUT: 400 cc of clear urine. COMPLICATIONS: None. DRAINS: Moffett to gravity. INDICATIONS: The patient is a 32-year-old parous female with undesired fertility who has a longstanding history of active endometriosis. The patient has tried conservative therapy without relief of symptoms and desires definitive treatment for her chronic left pelvic pain and dysmenorrhea. DESCRIPTION OF PROCEDURE: After informed consent was assured, the patient was taken to the operating room where anesthetic was obtained. The patient was now OPERATIVE REPORT [id number] MARIE SCOTT prepped and draped and a uterine manipulator placed. The infraumbilical incision site was injected with Marcaine, incision made, and a 5-mm trocar placed. Pneumoperitoneum was developed and the patient was placed in steep Trendelenburg position. Accessory ports were now placed in the right and left lower quadrants. Through the right hand port, a grasper was inserted and the left tube and ovary was elevated. Using a Harmonic scalpel, the infundibulopelvic ligaments compressed, coagulated, and . This dissection was carried out underneath the ovary down the broad ligament and the bladder flap developed to the midline. The vessels on the right side were skeletonized, compressed, coagulated, and at the level of the internal os. This was repeated on the patient's contralateral side. Again, the tube was elevated this time using a PK technology's gyrus. The mesosalpinx was compressed, coagulated, and free of the tube from its attachments to the adnexa. The dissection was carried down over the uteroovarian ligament and round ligaments. The anterior leaf of the broad ligament was opened and the bladder flap fully developed anteriorly. The vagina was now entered posteriorly and was opened along the margins of the cervix from the 9 to 3 o'clock positions. At this point, the dissection was carried out from the 6 to 12 o'clock with the concluding dissection from 12 to 3. The uterus was now placed into the vagina and removed along with the left tube and ovary. The cuff was now closed horizontally with interrupted [id number] stitches. Pneumoperitoneum was reestablished after the close and adequate hemostasis was obtained. Pelvis was irrigated and irrigant removed. Pneumoperitoneum was released as excessive trocars were removed. The skin was reapproximated with chromic stitch. Primary trocars were removed and the skin closed. Dermabond was placed on all incision sites. Sponge, lap, and needle counts correct times 2. TRANSINT:[id number] Voice Confirmation ID: [id number] DOCUMENT ID: [id number] LUIS FELIPE LINDO MD at 1700 CC: [id number] DICTATION DATE: 03/08/18931 SKIN CARE SPECIALIST: 03/08/18 1049 REG [facility] [address] [place] [address]
--- NOTE | ~2018-03-08 | DS ---
PATIENT:MARIE SCOTT :85 MEDICAL RECORD: [id number] DISCHARGE SUMMARY ADMISSION DATE: 03/08/18 DISCHARGE DATE: DATE OF ADMISSION: 03/08/2018. DATE OF DISCHARGE: 03/09/2018. ADMISSION DIAGNOSES: 1. Dysfunctional uterine bleeding. 2. Pelvic pain. DISCHARGE DIAGNOSES: 1. Dysfunctional uterine bleeding. 2. Pelvic pain. 3. Endometriosis. ATTENDING: Will Lindo MD PROCEDURES PERFORMED: 1. Diagnostic laparoscopy. 2. Total laparoscopic hysterectomy. 3. Bilateral salpingectomy. 4. Left oophorectomy HISTORY OF PRESENT ILLNESS: See the H&P in the chart. SUMMARY OF HOSPITALIZATION: The patient was admitted and underwent procedure without difficulty. At the time of discharge, she is doing well, tolerating a regular diet and voiding without difficulty. DISCHARGE MEDICATIONS: Will include ibuprofen and Percocet. Standard postoperative precautions have been reviewed. She will follow up in the clinic in 2 weeks. TRANSINT:[id number] Voice Confirmation ID: [id number] DOCUMENT ID: [id number] WILL LINDO MD at 1240 CC: [id number] DICTATION DATE: 03/09/18 1222 BUSINESS INTERN: 03/09/18 1232 [id number] [place] [address]
[~2018-03-08 07:30] MED LIST changes: +HYDROCODON-ACE1 EAC7 PO
[2018-03-08 07:35] LABS: HCG URINE NEGATIVE (NEGATIVE)
[2018-03-09 00:45] VITALS: BP 117/65
[2018-03-09 03:34] VITALS: BP 123/73
[2018-03-09 08:10] VITALS: BP 126/70
[2018-03-09 11:22] VITALS: BP 112/65
== END 2018-03-09 15:00 | disposition home or self-care (01) ==
LOC: D.PAN 07:30 → D.WS 07:30 → D.OPS 07:30 → D.WS 10:28 → D.OPS 03-09 15:00
PROVIDERS: Obstetrics & Gynecology
DX: N80.1 Endometriosis of ovary (principal); N80.3 Endometriosis of pelvic peritoneum; N80.0 Endometriosis of uterus; N83.02 Follicular cyst of left ovary; Z01.812 Encounter for preprocedural laboratory examination

== ENCOUNTER 2018-03-12 14:13 | Emergency (ER) | payer MEDICAID ==
[~2018-03-12] VITALS: Ht 162.6 cm; Wt 73.2 kg
[2018-03-12 14:37] VITALS: Ht 162.6 cm; Wt 73.2 kg
[2018-03-12] MEDS ORDERED: IBUPROFEN800 MG PO (14:38)
[2018-03-12 14:54] LABS: BASOPHILS 0.2 % (0-2); EOSINOPHILS 4.2 % (0-7); HEMATOCRIT 37.4 % (36.0-48.0); IMMATURE GRANULOCYTES 0.1 % (0-5); MCH 30.1 pg (26.0-34.0); MCHC 34.8 g/dL (31.0-37.0); MCV 86.6 fL (80.0-100.0); MONOCYTES 5.2 % (2-11); NEUTROPHILS 66.3 % (40-80); PLATELET COUNT 201 10x3/uL (130-400); RBC 4.32 10x6/uL (4.00-5.40); RDW 13.6 % (11.5-14.5); WBC 8.1 10x3/uL (4.8-10.8)
[2018-03-12 15:01] LABS: APPEARANCE CLEAR (CLEAR); BILIRUBIN NEGATIVE (NEGATIVE); COLOR YELLOW (YELLOW); GLUCOSE NEGATIVE (NEGATIVE); KETONE NEGATIVE (NEGATIVE); NITRITE NEGATIVE (NEGATIVE); PROTEIN NEGATIVE (NEGATIVE); SPECIFIC GRAVITY 1.005 (1.005-1.020); UROBILINOGEN NORMAL (NORMAL)
[2018-03-12 15:03] LABS: WHITE CELLS - URINE 0-5 /hpf (0-5)
[2018-03-12 15:04] LABS: BACTERIA FEW /hpf (NONE SEEN); EPITHELIAL CELLS 0-5 /hpf (0-5)
[2018-03-12 15:19] LABS: ALBUMIN 3.4 g/dL (3.4-5.0); ALKALINE PHOSPHATASE 75 U/L (46-116); ALT (SGPT) 14 U/L (10-68); BILIRUBIN - TOTAL 0.49 mg/dL (0.2-1.3); CALC OSMOLALITY 271 mosm/kg (275-300); CALCIUM 8.6 mg/dL (8.5-10.1); CARBON DIOXIDE 24.7 mmol/L (21.0-32.0); CHLORIDE - SERUM 104 mmol/L (98-107); CREATININE - SERUM 0.8 mg/dL (0.6-1.3); GLUCOSE 94 mg/dL (74-106); POTASSIUM - SERUM 3.9 mmol/L (3.5-5.1); PROTEIN - SERUM 7.5 g/dL (6.4-8.2); SODIUM 137 mmol/L (136-145); UREA NITROGEN 6 mg/dL (7-18); eGFR NON AFRICAN AMERICAN 88 mL/min (90-120)
[2018-03-12] MEDS ORDERED: LEVAQUIN750 MG PO (18:26)
[2018-03-12] MEDS ORDERED: NORCO 7.5/325 T1 TA1 PO (18:26)
[2018-03-12 18:49] VITALS: BP 132/76
== END 2018-03-12 18:51 | disposition home or self-care (01) ==
LOC: D.ER 14:13
PROVIDERS: Emergency Medicine
DX: K52.9 Noninfective gastroenteritis and colitis, unspecified (principal); R10.30 Lower abdominal pain, unspecified; N39.0 Urinary tract infection, site not specified; F17.200 Nicotine dependence, unspecified, uncomplicated

== ENCOUNTER 2018-03-29 22:28 | Emergency (ER) | payer MEDICAID ==
[~2018-03-29] VITALS: Ht 162.6 cm; Wt 76.4 kg
[~2018-03-29 22:28] MED LIST changes: +IBUPROFEN800 MG PO; +LEVAQUIN750 MG PO; +NORCO 7.5/325 T1 TA1 PO
[2018-03-29 22:36] VITALS: Ht 162.6 cm; Wt 76.4 kg
[2018-03-30 00:10] LABS: APPEARANCE HAZY (CLEAR); BILIRUBIN NEGATIVE (NEGATIVE); COLOR YELLOW (YELLOW); GLUCOSE NEGATIVE (NEGATIVE); KETONE NEGATIVE (NEGATIVE); NITRITE NEGATIVE (NEGATIVE); PROTEIN NEGATIVE (NEGATIVE); UROBILINOGEN NORMAL (NORMAL)
[2018-03-30 00:11] LABS: BACTERIA MANY /hpf (NONE SEEN); EPITHELIAL CELLS 0-5 /hpf (0-5); RED CELLS - URINE 0-5 /hpf (0-5)
[2018-03-30] MEDS ORDERED: MACROBID100 MG PO (01:19)
[2018-03-30] MEDS ORDERED: HYDROCODON-ACE1 EAC7 PO (01:19)
[2018-03-30] MEDS ORDERED: PHENERGAN25 M1 PO (01:19)
[2018-03-30 01:55] VITALS: BP 102/62
== END 2018-03-30 01:56 | disposition home or self-care (01) ==
LOC: D.ER 22:28
PROVIDERS: Family Medicine
DX: N39.0 Urinary tract infection, site not specified (principal); F17.200 Nicotine dependence, unspecified, uncomplicated

== ENCOUNTER 2018-04-19 18:21 | Emergency (ER) | payer MEDICAID ==
[~2018-04-19] VITALS: Ht 162.6 cm; Wt 77.3 kg
[~2018-04-19 18:21] MED LIST changes: +PHENERGAN25 M1 PO
[2018-04-19 18:43] VITALS: Ht 162.6 cm; Wt 77.3 kg
[2018-04-19 19:23] LABS: BASOPHILS 0.3 % (0-2); EOSINOPHILS 1.3 % (0-7); HEMOGLOBIN 12.3 g/dL (12-16); IMMATURE GRANULOCYTES 0.1 % (0-5); LYMPHOCYTES 34.1 % (15-50); MCH 30.7 pg (26.0-34.0); MCHC 34.2 g/dL (31.0-37.0); MCV 89.8 fL (80.0-100.0); MONOCYTES 5.6 % (2-11); NEUTROPHILS 58.6 % (40-80); PLATELET COUNT 182 10x3/uL (130-400); RBC 4.01 10x6/uL (4.00-5.40); RDW 14.5 % (11.5-14.5); WBC 6.8 10x3/uL (4.8-10.8)
[2018-04-19 19:24] LABS: ALBUMIN 3.2 g/dL (3.4-5.0); ALKALINE PHOSPHATASE 74 U/L (46-116); ALT (SGPT) 17 U/L (10-68); BILIRUBIN - TOTAL 0.15 mg/dL (0.2-1.3); CALC OSMOLALITY 276 mosm/kg (275-300); CALCIUM 8.6 mg/dL (8.5-10.1); CARBON DIOXIDE 25.6 mmol/L (21.0-32.0); CHLORIDE - SERUM 105 mmol/L (98-107); CREATININE - SERUM 0.7 mg/dL (0.6-1.3); GLUCOSE 96 mg/dL (74-106); POTASSIUM - SERUM 3.7 mmol/L (3.5-5.1); PROTEIN - SERUM 6.9 g/dL (6.4-8.2); SODIUM 140 mmol/L (136-145); UREA NITROGEN 8 mg/dL (7-18); eGFR NON AFRICAN AMERICAN > 90 mL/min (90-120)
[2018-04-19 19:32] LABS: PRO BNP 136 pg/mL (0-125)
[2018-04-19 22:22] LABS: APPEARANCE CLEAR (CLEAR); BILIRUBIN NEGATIVE (NEGATIVE); COLOR YELLOW (YELLOW); GLUCOSE NEGATIVE (NEGATIVE); KETONE NEGATIVE (NEGATIVE); NITRITE NEGATIVE (NEGATIVE); PROTEIN NEGATIVE (NEGATIVE); UROBILINOGEN NORMAL (NORMAL)
[2018-04-19 22:23] LABS: UDS - AMPHET NEGATIVE QUAL (NEGATIVE); UDS - BARB NEGATIVE QUAL (NEGATIVE); UDS - BENZO POSITIVE QUAL (NEGATIVE); UDS - COCAINE NEGATIVE QUAL (NEGATIVE); UDS - OPIATE POSITIVE QUAL (NEGATIVE); UDS - PCP NEGATIVE QUAL (NEGATIVE); UDS - THC NEGATIVE QUAL (NEGATIVE)
[2018-04-19] MEDS ORDERED: NORCO 5/325 TAB1 TAB PO (23:37)
[2018-04-19] MEDS ORDERED: LASIX20 MG PO (23:37)
[2018-04-20 00:11] VITALS: BP 124/77
== END 2018-04-20 00:22 | disposition home or self-care (01) ==
LOC: D.ER 18:21
PROVIDERS: Emergency Medicine; Family Medicine
DX: R60.9 Edema, unspecified (principal); F17.200 Nicotine dependence, unspecified, uncomplicated

== ENCOUNTER 2018-04-25 19:59 | Emergency (ER) | payer MEDICAID ==
[~2018-04-25] VITALS: Ht 162.6 cm; Wt 90.7 kg
[~2018-04-25 19:59] MED LIST changes: +LASIX20 MG PO; +NORCO 5/325 TAB1 TAB PO
[2018-04-25 20:02] VITALS: Ht 162.6 cm; Wt 90.7 kg
[2018-04-25 20:35] LABS: BASOPHILS 0.3 % (0-2); EOSINOPHILS 0.3 % (0-7); HEMOGLOBIN 13.8 g/dL (12-16); IMMATURE GRANULOCYTES 0.2 % (0-5); LYMPHOCYTES 24.3 % (15-50); MCH 30.9 pg (26.0-34.0); MCHC 34.5 g/dL (31.0-37.0); MCV 89.5 fL (80.0-100.0); MEAN PLATELET VOLUME 11.1 fL (7.4-10.4); MONOCYTES 5.5 % (2-11); NEUTROPHILS 69.4 % (40-80); PLATELET COUNT 200 10x3/uL (130-400); RBC 4.47 10x6/uL (4.00-5.40); RDW 14.4 % (11.5-14.5); WBC 10.2 10x3/uL (4.8-10.8)
[2018-04-25 20:41] LABS: APPEARANCE CLEAR (CLEAR); BILIRUBIN NEGATIVE (NEGATIVE); COLOR YELLOW (YELLOW); GLUCOSE NEGATIVE (NEGATIVE); KETONE NEGATIVE (NEGATIVE); NITRITE NEGATIVE (NEGATIVE); PROTEIN NEGATIVE (NEGATIVE); UROBILINOGEN NORMAL (NORMAL)
[2018-04-25] MEDS ORDERED: ROBAXIN500 MG PO (21:19)
[2018-04-25 21:35] VITALS: BP 118/78
== END 2018-04-25 21:36 | disposition home or self-care (01) ==
LOC: D.ER 19:59
PROVIDERS: Family Medicine
DX: R10.2 Pelvic and perineal pain (principal); Z87.42 Personal history of other diseases of the female genital tract; F17.200 Nicotine dependence, unspecified, uncomplicated

== ENCOUNTER 2018-04-27 20:02 | Emergency (ER) | payer MEDICAID ==
[~2018-04-27] VITALS: Ht 162.6 cm; Wt 74.1 kg
[~2018-04-27 20:02] MED LIST changes: +ROBAXIN500 MG PO
[2018-04-27 20:25] VITALS: Ht 162.6 cm; Wt 74.1 kg
[2018-04-27 20:41] LABS: BASOPHILS 0.3 % (0-2); EOSINOPHILS 0.7 % (0-7); HEMATOCRIT 39.8 % (36.0-48.0); HEMOGLOBIN 13.8 g/dL (12-16); IMMATURE GRANULOCYTES 0.2 % (0-5); LYMPHOCYTES 27.4 % (15-50); MCH 31.2 pg (26.0-34.0); MCHC 34.7 g/dL (31.0-37.0); MCV 89.8 fL (80.0-100.0); MEAN PLATELET VOLUME 10.8 fL (7.4-10.4); MONOCYTES 7.1 % (2-11); NEUTROPHILS 64.3 % (40-80); PLATELET COUNT 213 10x3/uL (130-400); RBC 4.43 10x6/uL (4.00-5.40); RDW 13.9 % (11.5-14.5); WBC 9.1 10x3/uL (4.8-10.8)
[2018-04-27 20:45] LABS: APPEARANCE CLOUDY (CLEAR); COLOR DK YELLOW (YELLOW)
[2018-04-27 20:48] LABS: BILIRUBIN NEGATIVE (NEGATIVE); GLUCOSE NEGATIVE (NEGATIVE); KETONE NEGATIVE (NEGATIVE); NITRITE NEGATIVE (NEGATIVE); PROTEIN NEGATIVE (NEGATIVE); UROBILINOGEN NORMAL (NORMAL)
[2018-04-27 20:49] LABS: RED CELLS - URINE 0-5 /hpf (0-5); WHITE CELLS - URINE 0-5 /hpf (0-5)
[2018-04-27 20:51] LABS: BACTERIA MODERATE /hpf (NONE SEEN)
[2018-04-27 20:59] LABS: ALKALINE PHOSPHATASE 89 U/L (46-116); ALT (SGPT) 13 U/L (10-68); BILIRUBIN - TOTAL 0.24 mg/dL (0.2-1.3); CALC OSMOLALITY 281 mosm/kg (275-300); CALCIUM 9.5 mg/dL (8.5-10.1); CARBON DIOXIDE 24.5 mmol/L (21.0-32.0); CHLORIDE - SERUM 105 mmol/L (98-107); CREATININE - SERUM 0.8 mg/dL (0.6-1.3); GLUCOSE 105 mg/dL (74-106); POTASSIUM - SERUM 3.6 mmol/L (3.5-5.1); PROTEIN - SERUM 8.6 g/dL (6.4-8.2); SODIUM 142 mmol/L (136-145); UREA NITROGEN 9 mg/dL (7-18); eGFR NON AFRICAN AMERICAN 88 mL/min (90-120)
[2018-04-27] MEDS ORDERED: ZOFRAN4 MG PO (22:16)
[2018-04-27] MEDS ORDERED: ELMIRON100 MG PO (22:16)
[2018-04-27 22:46] VITALS: BP 105/58
== END 2018-04-27 22:47 | disposition home or self-care (01) ==
LOC: D.ER 20:02
PROVIDERS: Family Medicine
DX: R10.2 Pelvic and perineal pain (principal); Z90.710 Acquired absence of both cervix and uterus; F17.200 Nicotine dependence, unspecified, uncomplicated

== ENCOUNTER 2018-05-23 14:14 | Emergency (ER) | payer MEDICAID ==
[~2018-05-23] VITALS: Ht 162.6 cm; Wt 74.1 kg
[~2018-05-23 14:14] MED LIST changes: +ELMIRON100 MG PO; +ZOFRAN4 MG PO
[2018-05-23 14:28] VITALS: Ht 162.6 cm; Wt 74.1 kg
[2018-05-23] MEDS ORDERED: AMOXICILLIN500 M1 PO (15:25)
[2018-05-23] MEDS ORDERED: VOLTAREN75 MG PO (15:25)
[2018-05-23 16:34] VITALS: BP 126/90
== END 2018-05-23 16:35 | disposition home or self-care (01) ==
LOC: D.ER 14:14
DX: K04.7 Periapical abscess without sinus (principal); K08.89 Other specified disorders of teeth and supporting structures; F17.200 Nicotine dependence, unspecified, uncomplicated

== ENCOUNTER 2018-06-05 18:03 | Emergency (ER) | payer MEDICAID ==
[~2018-06-05] VITALS: Ht 162.6 cm; Wt 73.9 kg
[~2018-06-05 18:03] MED LIST changes: +AMOXICILLIN500 M1 PO
[2018-06-05 18:06] VITALS: Ht 162.6 cm; Wt 73.9 kg
[2018-06-05] MEDS ORDERED: ROBAXIN500 MG PO (20:03)
[2018-06-05] MEDS ORDERED: NAPROSYN500 MG PO (20:03)
[2018-06-05 20:40] VITALS: BP 106/68
== END 2018-06-05 20:40 | disposition home or self-care (01) ==
LOC: D.ER 18:03
DX: S46.912A Strain of unspecified muscle, fascia and tendon at shoulder and upper arm level, left arm, initial encounter (principal); X58.XXXA Exposure to other specified factors, initial encounter; Y93.89 Activity, other specified; Y92.89 Other specified places as the place of occurrence of the external cause; R20.2 Paresthesia of skin

== ENCOUNTER 2018-06-29 14:40 | Emergency (ER) | payer MEDICAID ==
[~2018-06-29] VITALS: Ht 162.6 cm; Wt 72.7 kg
[~2018-06-29 14:40] MED LIST changes: +NAPROSYN500 MG PO
[2018-06-29 14:49] VITALS: Ht 162.6 cm; Wt 72.7 kg
[2018-06-29] MEDS ORDERED: PHENERGAN DM SYR5 ML PO (15:35)
[2018-06-29] MEDS ORDERED: AMOXICILLIN500 M1 PO (15:35)
[2018-06-29 16:04] VITALS: BP 118/81
== END 2018-06-29 16:04 | disposition home or self-care (01) ==
LOC: D.ER 14:40
DX: J06.9 Acute upper respiratory infection, unspecified (principal); R50.9 Fever, unspecified; F17.200 Nicotine dependence, unspecified, uncomplicated; J02.9 Acute pharyngitis, unspecified

== ENCOUNTER 2018-07-16 17:57 | Emergency (ER) | payer MEDICAID ==
[~2018-07-16] VITALS: Ht 162.6 cm; Wt 73.6 kg
[~2018-07-16 17:57] MED LIST changes: +PHENERGAN DM SYR5 ML PO
[2018-07-16 18:33] VITALS: Ht 162.6 cm; Wt 73.6 kg
[2018-07-16 19:31] LABS: BASOPHILS 0.3 % (0-2); EOSINOPHILS 0.4 % (0-7); HEMATOCRIT 39.8 % (36.0-48.0); HEMOGLOBIN 13.5 g/dL (12-16); IMMATURE GRANULOCYTES 0.1 % (0-5); LYMPHOCYTES 23.2 % (15-50); MCH 30.4 pg (26.0-34.0); MCHC 33.9 g/dL (31.0-37.0); MCV 89.6 fL (80.0-100.0); MEAN PLATELET VOLUME 10.3 fL (7.4-10.4); MONOCYTES 6.1 % (2-11); NEUTROPHILS 69.9 % (40-80); PLATELET COUNT 212 10x3/uL (130-400); RBC 4.44 10x6/uL (4.00-5.40); RDW 13.5 % (11.5-14.5); WBC 9.5 10x3/uL (4.8-10.8)
[2018-07-16 19:50] LABS: ALBUMIN 3.5 g/dL (3.4-5.0); ALKALINE PHOSPHATASE 83 U/L (46-116); ALT (SGPT) 12 U/L (10-68); CALC OSMOLALITY 276 mosm/kg (275-300); CALCIUM 8.9 mg/dL (8.5-10.1); CARBON DIOXIDE 25.7 mmol/L (21.0-32.0); CHLORIDE - SERUM 103 mmol/L (98-107); CREATININE - SERUM 0.8 mg/dL (0.6-1.3); GLUCOSE 96 mg/dL (74-106); POTASSIUM - SERUM 4.1 mmol/L (3.5-5.1); SODIUM 139 mmol/L (136-145); UREA NITROGEN 10 mg/dL (7-18); eGFR NON AFRICAN AMERICAN 87 mL/min (90-120)
[2018-07-16] MEDS ORDERED: FLUTICASONE PRO16 GM NASAL (22:54)
[2018-07-16] MEDS ORDERED: OMNICEF300 MG PO (22:54)
[2018-07-16 23:31] VITALS: BP 110/69
== END 2018-07-16 23:31 | disposition home or self-care (01) ==
LOC: D.ER 17:57
PROVIDERS: Family Medicine
DX: J01.90 Acute sinusitis, unspecified (principal); M54.6 Pain in thoracic spine

== ENCOUNTER 2018-09-02 16:17 | Emergency (ER) | payer MEDICAID ==
[~2018-09-02] VITALS: Ht 162.6 cm; Wt 72.7 kg
[~2018-09-02 16:17] MED LIST changes: +FLUTICASONE PRO16 GM NASAL; +OMNICEF300 MG PO
[2018-09-02 16:54] VITALS: Ht 162.6 cm; Wt 72.7 kg
[2018-09-02] MEDS ORDERED: PHENERGAN DM SYR5 ML PO (18:45)
[2018-09-02] MEDS ORDERED: AMOXICILLIN500 M1 PO (18:45)
[2018-09-02 19:42] VITALS: BP 120/65
== END 2018-09-02 19:42 | disposition home or self-care (01) ==
LOC: D.ER 16:17
DX: J40 Bronchitis, not specified as acute or chronic (principal); J06.9 Acute upper respiratory infection, unspecified; F17.200 Nicotine dependence, unspecified, uncomplicated; M54.6 Pain in thoracic spine

== ENCOUNTER 2018-09-16 22:23 | Emergency (ER) | payer MEDICAID ==
[~2018-09-16] VITALS: Ht 162.6 cm; Wt 72.6 kg
[2018-09-16 22:28] VITALS: Ht 162.6 cm; Wt 72.6 kg
[2018-09-16 22:47] LABS: AMORPHOUS SEDIMENT <1+ /lpf (NONE SEEN); APPEARANCE HAZY (CLEAR); BACTERIA NONE SEEN /hpf (NONE SEEN); BILIRUBIN NEGATIVE (NEGATIVE); COLOR YELLOW (YELLOW); EPITHELIAL CELLS 0-5 /hpf (0-5); GLUCOSE NEGATIVE (NEGATIVE); KETONE NEGATIVE (NEGATIVE); NITRITE NEGATIVE (NEGATIVE); PROTEIN NEGATIVE (NEGATIVE); RED CELLS - URINE NONE SEEN /hpf (0-5); UROBILINOGEN NORMAL (NORMAL); WHITE CELLS - URINE 0-5 /hpf (0-5)
[2018-09-16] MEDS ORDERED: ZOFRAN4 MG PO (23:33)
[2018-09-16] MEDS ORDERED: BENTYL10 MG PO (23:33)
[2018-09-17 00:07] VITALS: BP 112/88
== END 2018-09-17 00:07 | disposition home or self-care (01) ==
LOC: D.ER 22:23
PROVIDERS: Family Medicine
DX: R10.84 Generalized abdominal pain (principal); R11.2 Nausea with vomiting, unspecified

== ENCOUNTER 2018-10-15 23:33 | Emergency (ER) | payer MEDICAID ==
[~2018-10-15] VITALS: Ht 162.6 cm; Wt 72.6 kg
[~2018-10-15 23:33] MED LIST changes: +BENTYL10 MG PO
[2018-10-15 23:40] VITALS: Ht 162.6 cm; Wt 72.6 kg
[2018-10-15 23:53] LABS: BASOPHILS 0.3 % (0-2); EOSINOPHILS 1.1 % (0-7); HEMATOCRIT 36.5 % (36.0-48.0); HEMOGLOBIN 12.6 g/dL (12-16); IMMATURE GRANULOCYTES 0.1 % (0-5); LYMPHOCYTES 32.9 % (15-50); MCH 31.2 pg (26.0-34.0); MCHC 34.5 g/dL (31.0-37.0); MCV 90.3 fL (80.0-100.0); MEAN PLATELET VOLUME 10.4 fL (7.4-10.4); MONOCYTES 5.6 % (2-11); PLATELET COUNT 208 10x3/uL (130-400); RBC 4.04 10x6/uL (4.00-5.40); RDW 13.3 % (11.5-14.5); WBC 8.7 10x3/uL (4.8-10.8)
[2018-10-16 00:01] LABS: APTT 35.6 SECONDS (22.8-39.4); INR 1.09 (0.85-1.17); PROTIME 13.6 SECONDS (11.6-15.0)
[2018-10-16 00:29] LABS: ALBUMIN 3.4 g/dL (3.4-5.0); ALKALINE PHOSPHATASE 75 U/L (46-116); ALT (SGPT) 10 U/L (10-68); BILIRUBIN - TOTAL 0.26 mg/dL (0.2-1.3); CALC OSMOLALITY 277 mosm/kg (275-300); CALCIUM 8.5 mg/dL (8.5-10.1); CARBON DIOXIDE 29.1 mmol/L (21.0-32.0); CHLORIDE - SERUM 104 mmol/L (98-107); CREATININE - SERUM 0.8 mg/dL (0.6-1.3); GLUCOSE 100 mg/dL (74-106); POTASSIUM - SERUM 3.6 mmol/L (3.5-5.1); PROTEIN - SERUM 7.4 g/dL (6.4-8.2); SODIUM 140 mmol/L (136-145); UREA NITROGEN 11 mg/dL (7-18); eGFR NON AFRICAN AMERICAN 87 mL/min (90-120)
[2018-10-16 00:38] LABS: CKMB 0.1 U/L (0.0-3.6); CREATINE KINASE 44 UL (21-215)
[2018-10-16 00:43] LABS: TROPONIN-I < 0.017 ng/mL (0.000-0.060)
[2018-10-16 02:47] VITALS: BP 107/73
== END 2018-10-16 02:47 | disposition home or self-care (01) ==
LOC: D.ER 23:33
PROVIDERS: Family Medicine
DX: R00.2 Palpitations (principal); F41.9 Anxiety disorder, unspecified

== ENCOUNTER 2018-10-26 18:14 | Emergency (ER) | payer MEDICAID ==
[~2018-10-26] VITALS: Ht 162.6 cm; Wt 74.1 kg
[2018-10-26 18:29] VITALS: Ht 162.6 cm; Wt 74.1 kg
[2018-10-26] MEDS ORDERED: NEURONTIN 300300 MG PO (20:12)
[2018-10-26 20:50] VITALS: BP 119/86
== END 2018-10-26 20:50 | disposition home or self-care (01) ==
LOC: D.ER 18:14
DX: M53.82 Other specified dorsopathies, cervical region (principal)

== ENCOUNTER 2018-11-22 14:09 | Emergency (ER) | payer MEDICAID ==
[~2018-11-22] VITALS: Ht 162.6 cm; Wt 74.1 kg
[~2018-11-22 14:09] MED LIST changes: +NEURONTIN 300300 MG PO
[2018-11-22 14:30] VITALS: Ht 162.6 cm; Wt 74.1 kg
[2018-11-22 19:09] VITALS: BP 101/68
== END 2018-11-22 19:01 | disposition home or self-care (01) ==
LOC: D.ER 14:09
DX: R51 Headache (principal); Z76.5 Malingerer [conscious simulation]; M25.512 Pain in left shoulder

== ENCOUNTER 2019-04-25 08:00 | Day surgery (SDC) | payer MEDICAID ==
[2019-04-20 11:03] LABS: CALC OSMOLALITY 283 mosm/kg (275-300); CALCIUM 8.9 mg/dL (8.5-10.1); CARBON DIOXIDE 29.1 mmol/L (21.0-32.0); CHLORIDE - SERUM 106 mmol/L (98-107); CREATININE - SERUM 0.7 mg/dL (0.6-1.3); GLUCOSE 93 mg/dL (74-106); POTASSIUM - SERUM 4.1 mmol/L (3.5-5.1); SODIUM 142 mmol/L (136-145); UREA NITROGEN 15 mg/dL (7-18); eGFR NON AFRICAN AMERICAN > 90 mL/min (90-120)
[2019-04-20 11:32] LABS: BASOPHILS 0.3 % (0-2); EOSINOPHILS 0.6 % (0-7); HEMATOCRIT 40.6 % (36.0-48.0); HEMOGLOBIN 13.6 g/dL (12-16); IMMATURE GRANULOCYTES 0.1 % (0-5); LYMPHOCYTES 19.6 % (15-50); MCH 30.7 pg (26.0-34.0); MCHC 33.5 g/dL (31.0-37.0); MCV 91.6 fL (80.0-100.0); MEAN PLATELET VOLUME 10.9 fL (7.4-10.4); MONOCYTES 5.6 % (2-11); NEUTROPHILS 73.8 % (40-80); RBC 4.43 10x6/uL (4.00-5.40); RDW 13.1 % (11.5-14.5); WBC 11.9 10x3/uL (4.8-10.8)
[2019-04-20 11:48] LABS: PLATELET COUNT 270 10x3/uL (130-400)
[~2019-04-25] VITALS: Ht 160 cm; Wt 73.9 kg
[2019-04-25 08:58] VITALS: BP 106/70; Ht 160 cm; Wt 73.9 kg
--- NOTE | 2019-04-25 13:04 | NUR ---
7035 FRIENDS ASKING FOR ANXIETY MEDICINE AND PAIN MEDICINE FOR PT. PT CANNOT MOVE FINGERS OR ARM PT TALKATIVE
== END 2019-04-25 13:45 | disposition home or self-care (01) ==
LOC: D.OPS 08:00 → D.PAN 10:00 → D.OPS 10:00
PROVIDERS: ATTEND Orthopaedic Surgery
DX: M75.42 Impingement syndrome of left shoulder (principal); M19.012 Primary osteoarthritis, left shoulder; M25.212 Flail joint, left shoulder

== ENCOUNTER 2019-06-29 13:09 | Emergency (ER) | payer OTHER ==
[~2019-06-29] VITALS: Ht 160 cm; Wt 74.1 kg
[2019-06-29 13:17] VITALS: Ht 160 cm; Wt 74.1 kg
[2019-06-29 14:20] LABS: CALC OSMOLALITY 276 mosm/kg (275-300); CALCIUM 8.6 mg/dL (8.5-10.1); CARBON DIOXIDE 25.1 mmol/L (21.0-32.0); CHLORIDE - SERUM 106 mmol/L (98-107); CREATININE - SERUM 0.6 mg/dL (0.6-1.3); GLUCOSE 98 mg/dL (74-106); POTASSIUM - SERUM 3.9 mmol/L (3.5-5.1); SODIUM 140 mmol/L (136-145); UREA NITROGEN 6 mg/dL (7-18); eGFR NON AFRICAN AMERICAN > 90 mL/min (90-120)
[2019-06-29 14:24] LABS: BASOPHILS 0.3 % (0-2); EOSINOPHILS 0.8 % (0-7); HEMATOCRIT 36.1 % (36.0-48.0); HEMOGLOBIN 12.4 g/dL (12-16); IMMATURE GRANULOCYTES 0.3 % (0-5); LYMPHOCYTES 21.2 % (15-50); MCH 31.4 pg (26.0-34.0); MCHC 34.3 g/dL (31.0-37.0); MCV 91.4 fL (80.0-100.0); MEAN PLATELET VOLUME 10.7 fL (7.4-10.4); MONOCYTES 5.2 % (2-11); NEUTROPHILS 72.2 % (40-80); PLATELET COUNT 218 10x3/uL (130-400); RBC 3.95 10x6/uL (4.00-5.40); RDW 12.9 % (11.5-14.5); WBC 10.7 10x3/uL (4.8-10.8)
[2019-06-29 14:25] LABS: APPEARANCE HAZY (CLEAR); BACTERIA MANY /hpf (NEGATIVE); BILIRUBIN NEGATIVE (NEGATIVE); COLOR YELLOW (YELLOW); EPITHELIAL CELLS 0-5 /hpf (0-5); GLUCOSE NEGATIVE (NEGATIVE); KETONE NEGATIVE (NEGATIVE); MUCUS <1+ /lpf (NONE SEEN); NITRITE NEGATIVE (NEGATIVE); PROTEIN NEGATIVE (NEGATIVE); RED CELLS - URINE RARE /hpf (0-5); SPECIFIC GRAVITY 1.005 (1.005-1.020); UROBILINOGEN NORMAL (NORMAL); WHITE CELLS - URINE 0-5 /hpf (NEGATIVE)
[2019-06-29 14:26] LABS: ALBUMIN 3.3 g/dL (3.4-5.0); ALKALINE PHOSPHATASE 85 U/L (46-116); ALT (SGPT) 12 U/L (10-68); BILIRUBIN - TOTAL 0.18 mg/dL (0.2-1.3); PROTEIN - SERUM 6.6 g/dL (6.4-8.2)
[2019-06-29] MEDS ORDERED: ZOFRAN ODT4 MG/UDTAB PO (15:47)
[2019-06-29 16:21] VITALS: BP 135/80
== END 2019-06-29 16:22 | disposition home or self-care (01) ==
LOC: D.ER 13:09
PROVIDERS: Family Medicine
DX: N93.9 Abnormal uterine and vaginal bleeding, unspecified (principal)

== ENCOUNTER 2019-07-09 20:50 | Emergency (ER) | payer OTHER ==
[~2019-07-09] VITALS: Ht 160 cm; Wt 74.1 kg
[~2019-07-09 20:50] MED LIST changes: +ZOFRAN ODT4 MG/UDTAB PO
[2019-07-09 21:08] VITALS: Ht 160 cm; Wt 74.1 kg
[2019-07-09] MEDS ORDERED: HYDROCODON-ACE1 EAC7 PO (21:10)
[2019-07-09 21:57] LABS: APPEARANCE CLEAR (CLEAR); BILIRUBIN NEGATIVE (NEGATIVE); COLOR YELLOW (YELLOW); GLUCOSE NEGATIVE (NEGATIVE); KETONE NEGATIVE (NEGATIVE); NITRITE NEGATIVE (NEGATIVE); PROTEIN NEGATIVE (NEGATIVE); UROBILINOGEN NORMAL (NORMAL)
[2019-07-09 21:58] LABS: BASOPHILS 0.3 % (0-2); EOSINOPHILS 0.8 % (0-7); HEMATOCRIT 39.6 % (36.0-48.0); HEMOGLOBIN 13.5 g/dL (12-16); IMMATURE GRANULOCYTES 0.2 % (0-5); LYMPHOCYTES 28.3 % (15-50); MCH 31.5 pg (26.0-34.0); MCHC 34.1 g/dL (31.0-37.0); MCV 92.3 fL (80.0-100.0); MEAN PLATELET VOLUME 10.8 fL (7.4-10.4); NEUTROPHILS 64.4 % (40-80); PLATELET COUNT 239 10x3/uL (130-400); RBC 4.29 10x6/uL (4.00-5.40); RDW 13.3 % (11.5-14.5); WBC 9.9 10x3/uL (4.8-10.8)
[2019-07-09 22:24] LABS: CALC OSMOLALITY 279 mosm/kg (275-300); CALCIUM 9.2 mg/dL (8.5-10.1); CARBON DIOXIDE 25.5 mmol/L (21.0-32.0); CHLORIDE - SERUM 104 mmol/L (98-107); CREATININE - SERUM 0.7 mg/dL (0.6-1.3); GLUCOSE 97 mg/dL (74-106); POTASSIUM - SERUM 3.9 mmol/L (3.5-5.1); SODIUM 141 mmol/L (136-145); UREA NITROGEN 9 mg/dL (7-18); eGFR NON AFRICAN AMERICAN > 90 mL/min (90-120)
[2019-07-09 22:30] LABS: ALBUMIN 3.8 g/dL (3.4-5.0); ALKALINE PHOSPHATASE 96 U/L (46-116); ALT (SGPT) 23 U/L (10-68); PROTEIN - SERUM 7.9 g/dL (6.4-8.2)
[2019-07-09 23:26] VITALS: BP 133/87
== END 2019-07-09 23:26 | disposition home or self-care (01) ==
LOC: D.ER 20:50
PROVIDERS: Family Medicine
DX: R10.2 Pelvic and perineal pain (principal); R11.2 Nausea with vomiting, unspecified

== ENCOUNTER 2019-07-23 08:20 | Day surgery (SDC) | payer OTHER ==
[2019-07-20 10:54] LABS: BASOPHILS 0.5 % (0-2); EOSINOPHILS 0.9 % (0-7); HEMATOCRIT 40.2 % (36.0-48.0); HEMOGLOBIN 13.9 g/dL (12-16); IMMATURE GRANULOCYTES 0.1 % (0-5); MCH 31.2 pg (26.0-34.0); MCHC 34.6 g/dL (31.0-37.0); MCV 90.3 fL (80.0-100.0); MEAN PLATELET VOLUME 10.7 fL (7.4-10.4); MONOCYTES 6.5 % (2-11); PLATELET COUNT 235 10x3/uL (130-400); RBC 4.45 10x6/uL (4.00-5.40); RDW 12.9 % (11.5-14.5); WBC 8.6 10x3/uL (4.8-10.8)
[~2019-07-23] VITALS: Ht 162.6 cm; Wt 78.9 kg
[2019-07-23 09:09] VITALS: BP 109/65; Ht 162.6 cm; Wt 78.9 kg
--- NOTE | 2019-07-23 15:03 | NUR ---
1455 RETURNED TO 2509 SPOUSE AT SIDE, CRITERIA FOR RELEASE HOME REVIEWED, HOB ADJUSTED FOR COMFORT.
--- NOTE | 2019-08-11 10:50 | OP ---
PATIENT NAME: MARIE SCOTT MEDICAL RECORD: [id number] :85 LOCATION:[facility]OPS ADMISSION DATE: SURGEON: WILL LINDO MD DATE OF OPERATION: 07/23/2019 DATE OF SERVICE: 07/23/2019 PREOPERATIVE DIAGNOSES: 1. Chronic pelvic pain. 2. Right ovarian mass. PROCEDURES: 1. Diagnostic laparoscopy. 2. Right salpingo-oophorectomy. SURGEON: Will Lindo MD ANESTHESIOLOGIST: Geronimo White MD ANESTHESIA: General. FINDINGS: Evidence of previous total laparoscopic hysterectomy and left oophorectomy present. Both tubes are absent. Right ovary has approximately 3 cm mass. Otherwise, unremarkable. SPECIMENS REMOVED: Right ovary. SPECIMEN DISPOSITION: Pathology. ESTIMATED BLOOD LOSS: Minimal. FLUIDS: 1300 cc of lactated Ringer's. URINE OUTPUT: Quantity sufficient cath prior to this procedure. COMPLICATIONS: None. DRAINS: None. INDICATIONS: The patient is a 34-year-old female with previous hysterectomy and LSO with chronic pelvic pain. The patient has persistent right pain and cyst identified on ultrasound. The patient has consented for RSO. Risks, benefits as well as understanding of hormone replacement therapy has been discussed. DESCRIPTION OF PROCEDURE: After informed consent was assured, the patient was taken to the operating room, anesthetic was obtained. The patient was now prepped and draped in the usual sterile fashion. An incision was made with the umbilicus to accommodate a 5-mm trocar, which was inserted without difficulty. Pneumoperitoneum was developed and the patient was placed in Trendelenburg position. Accessory ports are now placed in the midline and right lower quadrant. Through the midline port, the graspers inserted and the right ovary was elevated on its pedicle. A Thunderbeat coagulation cutter was now utilized to compress, coagulate, and separate the infundibulopelvic ligament. This dissection was carried out across the ligament and underneath the ovary. The ovary was now placed in an Endobag and removed through the midline incision. OPERATIVE REPORT [id number] MARIE SCOTT After removal of the ovary, the pelvis was irrigated, irrigant removed. Operative site appears to be hemostatic. Pneumoperitoneum was released and the accessory ports were removed. The primary port was now removed. All sites were closed with a subcuticular stitch and then covered with Dermabond. Sponge, lap, needle counts were correct times 2. TRANSINT:[id number] Voice Confirmation ID: [id number] DOCUMENT ID: [id number] WILL LINDO MD at 1050 CC: [id number] DICTATION DATE: 08/09/19 0834 CPAS: 08/09/19 1031 [facility] 07/23/19 [address] [place] [address]
== END 2019-07-23 16:05 | disposition home or self-care (01) ==
LOC: D.OPS 08:20 → D.PAN 11:15 → D.OPS 16:05
PROVIDERS: ATTEND Obstetrics & Gynecology
DX: Z01.419 Encounter for gynecological examination (general) (routine) without abnormal findings (principal); N89.8 Other specified noninflammatory disorders of vagina; R10.2 Pelvic and perineal pain; N80.3 Endometriosis of pelvic peritoneum; N83.201 Unspecified ovarian cyst, right side

== ENCOUNTER 2019-07-29 21:13 | Emergency (ER) | payer OTHER ==
[~2019-07-29] VITALS: Ht 162.6 cm; Wt 72.6 kg
[2019-07-29 21:16] VITALS: Ht 162.6 cm; Wt 72.6 kg
[2019-07-29 21:44] LABS: APPEARANCE CLEAR (CLEAR); BILIRUBIN NEGATIVE (NEGATIVE); COLOR YELLOW (YELLOW); GLUCOSE NEGATIVE (NEGATIVE); KETONE NEGATIVE (NEGATIVE); NITRITE NEGATIVE (NEGATIVE); PROTEIN NEGATIVE (NEGATIVE); UROBILINOGEN NORMAL (NORMAL)
[2019-07-29 22:06] LABS: BASOPHILS 0.2 % (0-2); EOSINOPHILS 1.8 % (0-7); HEMATOCRIT 39.8 % (36.0-48.0); HEMOGLOBIN 13.7 g/dL (12-16); IMMATURE GRANULOCYTES 0.1 % (0-5); LYMPHOCYTES 23.8 % (15-50); MCH 31.6 pg (26.0-34.0); MCHC 34.4 g/dL (31.0-37.0); MCV 91.9 fL (80.0-100.0); MEAN PLATELET VOLUME 10.4 fL (7.4-10.4); MONOCYTES 5.9 % (2-11); NEUTROPHILS 68.2 % (40-80); PLATELET COUNT 213 10x3/uL (130-400); RBC 4.33 10x6/uL (4.00-5.40); RDW 12.9 % (11.5-14.5); WBC 9.6 10x3/uL (4.8-10.8)
[2019-07-29 22:14] LABS: CALC OSMOLALITY 283 mosm/kg (275-300); CALCIUM 8.7 mg/dL (8.5-10.1); CARBON DIOXIDE 27.9 mmol/L (21.0-32.0); CHLORIDE - SERUM 106 mmol/L (98-107); CREATININE - SERUM 0.7 mg/dL (0.6-1.3); GLUCOSE 96 mg/dL (74-106); POTASSIUM - SERUM 3.9 mmol/L (3.5-5.1); SODIUM 143 mmol/L (136-145); UREA NITROGEN 10 mg/dL (7-18); eGFR NON AFRICAN AMERICAN > 90 mL/min (90-120)
[2019-07-29 22:20] LABS: ALBUMIN 3.5 g/dL (3.4-5.0); ALKALINE PHOSPHATASE 89 U/L (46-116); ALT (SGPT) 20 U/L (10-68); BILIRUBIN - TOTAL 0.18 mg/dL (0.2-1.3); PROTEIN - SERUM 7.6 g/dL (6.4-8.2)
[2019-07-29] MEDS ORDERED: LEVSIN/ANASP0.125 MG PO (23:26)
[2019-07-29] MEDS ORDERED: PHENERGAN25 M1 PO (23:26)
[2019-07-29 23:44] VITALS: BP 113/71
== END 2019-07-29 23:44 | disposition home or self-care (01) ==
LOC: D.ER 21:13
PROVIDERS: Family Medicine
DX: R10.2 Pelvic and perineal pain (principal); R11.0 Nausea; I47.1 Supraventricular tachycardia; Z90.721 Acquired absence of ovaries, unilateral